=== PATIENT | male | born 1990 | race African-American/Black ===

== ENCOUNTER 2016-07-30 07:59 | Emergency (ER) | payer MEDICAID ==
[~2016-07-30] VITALS: Ht 170.2 cm; Wt 68.0 kg
[2016-07-30] MEDS ORDERED: HYDROCODONE/ACETAMINOPHEN 5/325MG TABLET PO ONE (09:30)
[2016-07-30 09:35] VITALS: BP 146/108
== END 2016-07-30 09:57 | disposition home or self-care (01) ==
LOC: ER 08:23
DX: S29.012A Strain of muscle and tendon of back wall of thorax, initial encounter (principal); S39.012A Strain of muscle, fascia and tendon of lower back, initial encounter; X58.XXXA Exposure to other specified factors, initial encounter; Y93.89 Activity, other specified; Y92.89 Other specified places as the place of occurrence of the external cause; Y99.8 Other external cause status
CPT/HCPCS: 99283

== ENCOUNTER 2017-12-05 20:05 | Emergency (ER) | payer MEDICAID, OTHER ==
[~2017-12-05] VITALS: Ht 170.2 cm; Wt 68.0 kg
[2017-12-05 23:45] VITALS: BP 119/75
== END 2017-12-05 23:46 | disposition home or self-care (01) ==
LOC: ER 21:17
DX: T14.8XXA Other injury of unspecified body region, initial encounter (principal); W57.XXXA Bitten or stung by nonvenomous insect and other nonvenomous arthropods, initial encounter; Y93.9 Activity, unspecified; Y92.9 Unspecified place or not applicable
CPT/HCPCS: 99282